=== PATIENT | female | born 1950 | race Caucasian/White ===

== ENCOUNTER → 2018-11-05 | Outpatient (CLI) | payer MEDICARE, OTHER ==
[~2018-11-05] MED LIST: AIRBORNE TABLE1 EACH PO; ALBUTEROL2.5 MG/31 INH; ALEVE220 MG PO; AZITHROMYCIN 2250 MG PO; AZITHROMYCIN250 MG; DOCUSATE SODIU100 MG PO; IBUPROFEN 200200 M1 PO; LEVAQUIN 250 M250 MG PO; MUCINEX D TABL1 EAC1 PO; MULTI VITAMIN1 EACH PO; NEBULIZER MISCELL; NICOTINE TRANSD14 M1 TD; OSELB75 PO; PREDNISONE 10 M10 M1 PO; PREDNISONE 10 M10 MG PO; PROAIR HFA8.5 GM IH; SPIRIVA INH; SYMBICORT160 MCG/4. INH; SYMBICORT80 MCG/4.1; TESSALON PERLE100 MG PO; TYLENOL325 MG PO; VENTOLIN HFA 1818 GM INH; VITAMINC500 PO
== END ==
LOC: M.RAD 10-29 13:10
DX: Z12.31 Encounter for screening mammogram for malignant neoplasm of breast (principal); M81.8 Other osteoporosis without current pathological fracture; Z78.0 Asymptomatic menopausal state

== ENCOUNTER → 2018-11-12 | Outpatient (CLI) | payer MEDICARE, OTHER | LOC: M.CT 07:29 | DX: R19.5 Other fecal abnormalities (principal); M47.816 Spondylosis without myelopathy or radiculopathy, lumbar region; M43.26 Fusion of spine, lumbar region; M43.16 Spondylolisthesis, lumbar region; Z90.710 Acquired absence of both cervix and uterus ==

== ENCOUNTER → 2018-11-19 | Day surgery (SDC) | payer MEDICARE, OTHER ==
[~2018-11-19] VITALS: Ht 152.4 cm; Wt 46.3 kg
--- NOTE | ~2018-11-19 | PROC ---
[address] [place] [address] PROCEDURE REPORT Name: RENEE LATIF Room: [facility] M.R.#: [id number] Admission: 11/19/18 Attend Phys: Forrest Lees MD Discharge: Date of : 46 Report #: [id number] THIS REPORT FOR: //name// For GI report, please see the Provation report in Perceptive 7 content. By: 0650Medical Records Staff JAZLYN /LIZETH
[2018-11-19 09:35] LABS: HEMATOCRIT 47.6 % (37.0-47.0); HEMOGLOBIN 16.3 gm/dL (12.0-15.0); MCH 32.8 pg (26.0-34.0); MCHC 34.4 g/dL (28.0-37.0); MCV 95.6 fL (80.0-100.0); MPV 9.1 fl. (7.2-11.1); RBC 4.97 mil/uL (4.20-5.00); RDW-CV 12.6 % (10.5-14.5); WBC 5.7 thou/uL (4.0-11.0)
[2018-11-19 09:48] LABS: ALBUMIN 3.7 g/dL (3.4-5.0); CALCIUM 8.8 mg/dL (8.5-10.1); CREATININE 0.8 mg/dL (0.6-1.3); POTASSIUM 3.6 mmol/L (3.5-5.1); TOTAL BILIRUBIN 0.6 mg/dL (<0.1-1.0); TOTAL PROTEIN 7.5 g/dL (6.4-8.2)
--- NOTE | 2018-11-19 11:40 | EKG ---
[place] [address] ELECTROCARDIOGRAM REPORT Name: RENEE LATIF Room: [facility].#: [id number] Admission: 11/19/18 Attend Phys: Forrest Lees MD Discharge: Date of : 46 Report #: [id number] THIS REPORT FOR: //name// [facility] Test Date: 2018-11-19 Test Time: 09:30:32 Pat Name: RENEE JESSEEBLAIRE Department: Room: Gender: F Line Maintenance Supervisor: : [id number] Requested By: Francisco Hallman Order Number: [id number] Hardik MD: Fuad Jay Measurements Intervals [place] Rate: 116 P: 84 HI: 141 QRS: 75 QRSD: 77 T: 61 QT: 325 QTc: 452 Interpretive Statements Sinus tachycardia Right atrial enlargement Compared to ECG 08/24/2017 19:33:58 ST (T wave) deviation no longer present Electronically Signed On 11-19-2018 11:39:55 CDT by Fuad Jay [email or web address] <ELECTRONICALLY SIGNED> By: Fuad Jay MD, [facility] 11/19/18 1139 9 9 Fuad Jay MD, FAC /EPI
--- NOTE | 2018-11-21 10:08 | PATH ---
[address] [address] PATHOLOGY RPT PROCEDURE Name: RENEE LATIF Room: [facility] M.R.#: [id number] Admission: 11/19/18 Date of : 46 Discharge: Report #: [id number] Path Case #: [id number] [facility] Accession Number: [id number] . 01 Material submitted: . PART A: GASTIC BIOPSY FOR H-PYLORI PART B: RECTAL POLYP . 01 Clinical history: . LLQ pain, Hx of colon polyps, GERD . 02 Diagnosis: A. Gastric biopsy "gastric biopsy": - Mild chronic reactive gastropathy. - There is no evidence of atypia or malignancy. - The immunoperoxidase stain for Helicobacter pylori is negative. . B. Colonic mucosa "rectal polyp biopsy": - Tubular adenoma. - There is no evidence of high-grade dysplasia or malignancy. (SHA:pit 11/20/2018) QTP/11/20/2018 . 02 Electronically signed: . Reed Zavala MD, Pathologist NPI- [id number] . 01 Gross description: . A. Received in formalin labeled "Renee Latif, gastric biopsy for H. pylori," are 2 segments of torres soft tissue measuring 1.4 x 0.3 x 0.3 cm in aggregate dimensions and ranging from 0.4 to 0.8 cm in maximum dimension. The specimen is submitted entirely in cassette A1. . B. Received in formalin labeled "Renee Latif, rectal polyp," is a 1.1 x 0.8 x 0.9 cm polypoid piece of torres soft tissue. The margin is inked and the specimen is sectioned perpendicular to the margin and entirely submitted in cassette B1 and B2. (TSD; 11/19/2018) TOB/TOB . 02 Pathologist provided ICD-10: K31.9, D12.8 . 02 CPT . 507951, 245116 Specimen Comment: A courtesy copy of this report has been sent to Specimen Comment: [phone], . Specimen Comment: Report sent to / [place] [address] PATHOLOGY RPT PROCEDURE Name: RENEE LATIF ANN Room: [facility]#: [id number] Admission: 11/19/18 Date of : 46 Discharge: Report #: [id number] Path Case #: [id number] Specimen Comment: A duplicate report has been generated due to demographic updates. Performed at: 01 [facility] [place] [address], [place] [id number] MD Charli Natarajan MD Phone: [phone] Performed at: 02 [facility] [address], [place], [place] [id number] MD Shane Cruz MD Phone: [phone]
== END | disposition home or self-care (01) ==
LOC: M.SUR
PROVIDERS: Student in an Organized Health Care Education/Training Program
DX: Z12.11 Encounter for screening for malignant neoplasm of colon (principal); Z86.010 Personal history of colon polyps; D12.8 Benign neoplasm of rectum; K57.30 Diverticulosis of large intestine without perforation or abscess without bleeding; K31.89 Other diseases of stomach and duodenum; I25.10 Atherosclerotic heart disease of native coronary artery without angina pectoris; J44.9 Chronic obstructive pulmonary disease, unspecified; K21.9 Gastro-esophageal reflux disease without esophagitis; F17.210 Nicotine dependence, cigarettes, uncomplicated; Z90.710 Acquired absence of both cervix and uterus; Z98.890 Other specified postprocedural states; Z91.040 Latex allergy status; Z86.718 Personal history of other venous thrombosis and embolism; Z79.01 Long term (current) use of anticoagulants

== ENCOUNTER → 2020-02-11 | Outpatient (CLI) | payer MEDICARE, OTHER | LOC: M.RAD 10:32 | DX: Z12.31 Encounter for screening mammogram for malignant neoplasm of breast (principal); R94.6 Abnormal results of thyroid function studies ==

== ENCOUNTER → 2021-06-24 | Outpatient (CLI) | payer MEDICARE, OTHER | LOC: M.ULTRA 10:08 | PROVIDERS: ATTEND Family Medicine | DX: Z12.31 Encounter for screening mammogram for malignant neoplasm of breast (principal); I70.0 Atherosclerosis of aorta; R79.89 Other specified abnormal findings of blood chemistry ==

== ENCOUNTER → 2021-09-22 | Outpatient (CLI) | payer MEDICARE, OTHER | LOC: M.RAD 14:24 | PROVIDERS: ATTEND Family Medicine | DX: M81.0 Age-related osteoporosis without current pathological fracture (principal) ==